=== PATIENT | female | born 1985 | race Asian ===

== ENCOUNTER 2017-02-26 09:52 | Emergency (ER) | payer OTHER ==
[~2017-02-26] VITALS: Ht 177.8 cm; Wt 104.3 kg
== END 2017-02-26 11:59 | disposition home or self-care (01) ==
LOC: ED 09:52
DX: L53.9 Erythematous condition, unspecified (principal)
CPT/HCPCS: 99281

== ENCOUNTER 2022-03-31 19:19 | Emergency (ER) | payer OTHER ==
[~2022-03-31] VITALS: Ht 165.1 cm; Wt 104.3 kg
[2022-03-31 19:27] VITALS: BP 181/104; TEMP 98.7
== END 2022-03-31 20:50 | disposition home or self-care (01) ==
LOC: ED 19:19
DX: J33.9 Nasal polyp, unspecified (principal); Z20.822 Contact with and (suspected) exposure to COVID-19
CPT/HCPCS: 87502; 87635; 87651; 99282; U0003

== ENCOUNTER 2022-05-14 05:28 | Emergency (ER) | payer OTHER ==
[~2022-05-14] VITALS: Ht 162.6 cm; Wt 104.3 kg
[2022-05-14 05:37] VITALS: TEMP 98.9
[2022-05-14 07:20] VITALS: BP 146/92
== END 2022-05-14 07:25 | disposition home or self-care (01) ==
LOC: ED 05:28
PROC: 2W3CX1Z Immobilization of Right Lower Arm using Splint (ICD-10-PCS; principal; 2022-05-14)
DX: S69.81XA Other specified injuries of right wrist, hand and finger(s), initial encounter (principal); M25.531 Pain in right wrist; W50.0XXA Accidental hit or strike by another person, initial encounter; Y93.F9 Activity, other caregiving; Y92.128 Other place in nursing home as the place of occurrence of the external cause
CPT/HCPCS: 99283; J1100; J1885

== ENCOUNTER 2022-06-23 13:03 | Outpatient (CLI) | payer OTHER | END 2022-06-23 18:59 | disposition home or self-care (01) | LOC: MRI 13:03 | PROVIDERS: ATTEND Orthopaedic Surgery | DX: M25.531 Pain in right wrist (principal); M25.831 Other specified joint disorders, right wrist; S63.8X1A Sprain of other part of right wrist and hand, initial encounter; Y92.89 Other specified places as the place of occurrence of the external cause ==

== ENCOUNTER 2022-06-29 17:59 | Emergency (ER) | payer OTHER ==
[~2022-06-29] VITALS: Ht 162.6 cm; Wt 104.3 kg
[2022-06-29 18:03] VITALS: TEMP 97.8
[2022-06-29 18:27] LABS: PLATELET COUNT 277 K/uL (152-353)
[2022-06-29 18:34] LABS: POTASSIUM 3.7 mmol/L (3.6-5.2)
[2022-06-29 23:45] VITALS: BP 134/84
== END 2022-06-29 23:45 | disposition home or self-care (01) ==
LOC: ED 17:59
PROVIDERS: Emergency Medicine
DX: I10 Essential (primary) hypertension (principal); R07.89 Other chest pain; R51.9 Headache, unspecified
CPT/HCPCS: 36415; 80048; 84484; 85027; 93005; 99284; J0360; J2270; J2405; J3490

== ENCOUNTER 2022-07-08 06:58 | Emergency (ER) | payer OTHER ==
[~2022-07-08] VITALS: Ht 162.6 cm; Wt 104.3 kg
[2022-07-08 07:57] LABS: PLATELET COUNT 279 K/uL (152-353)
[2022-07-08 08:00] LABS: POTASSIUM 3.6 mmol/L (3.6-5.2)
[2022-07-08 08:06] LABS: PARTIAL THROMBOPLASTIN TIME 25.3 SECONDS (24.5-33.6)
[2022-07-08 09:54] VITALS: BP 123/94; TEMP 98.7
== END 2022-07-08 09:54 | disposition home or self-care (01) ==
LOC: ED 06:58
PROVIDERS: Internal Medicine
DX: R07.89 Other chest pain (principal); K21.9 Gastro-esophageal reflux disease without esophagitis; I10 Essential (primary) hypertension
CPT/HCPCS: 36415; 80053; 82550; 84484; 85027; 85610; 85730; 93005; 96374; 99284; J1885; J3490

== ENCOUNTER 2022-07-22 08:39 | Emergency (ER) | payer OTHER ==
[~2022-07-22] VITALS: Ht 162.6 cm; Wt 104.3 kg
[2022-07-22 08:44] VITALS: TEMP 99.1
[2022-07-22 10:24] VITALS: BP 124/75
== END 2022-07-22 10:24 | disposition home or self-care (01) ==
LOC: ED 08:39
DX: K04.7 Periapical abscess without sinus (principal); R03.0 Elevated blood-pressure reading, without diagnosis of hypertension
CPT/HCPCS: 96372; 99283; J0696; J1885

== ENCOUNTER 2022-09-15 19:50 | Emergency (ER) | payer OTHER ==
[~2022-09-15] VITALS: Ht 162.6 cm; Wt 104.3 kg
[2022-09-15 20:00] VITALS: TEMP 97.6
[2022-09-15 21:44] VITALS: BP 180/88
== END 2022-09-15 21:44 | disposition home or self-care (01) ==
LOC: ED 19:50
DX: R30.0 Dysuria (principal)
CPT/HCPCS: 81002; 82948; 99283

== ENCOUNTER 2022-12-21 09:25 | Emergency (ER) | payer OTHER ==
[~2022-12-21] VITALS: Ht 162.6 cm; Wt 104.3 kg
[2022-12-21 09:35] VITALS: TEMP 99.6
[2022-12-21 11:11] VITALS: BP 134/94
== END 2022-12-21 11:11 | disposition home or self-care (01) ==
LOC: ED 09:25
DX: M54.9 Dorsalgia, unspecified (principal); I10 Essential (primary) hypertension
CPT/HCPCS: 96372; 99283; J1100; J1885